=== PATIENT | female | born 1965 | race Hispanic/Latino ===

== ENCOUNTER 2020-01-28 10:25 | Emergency (ER) | payer BC, OTHER ==
[~2020-01-28] VITALS: Ht 149.9 cm; Wt 61.2 kg
[2020-01-28] MEDS ORDERED: METHYLPREDNISOLONE SOD SUCC 125 MG/2ML VIAL IM ONE (11:15)
[2020-01-28] MEDS ORDERED: DIAZEPAM 2 MG TAB PO ONE (11:15)
[2020-01-28] MEDS ORDERED: KETOROLAC TROMETHAMINE 60 MG/2 ML VIAL IM ONE (11:15)
--- OUTSIDE RECORDS SUMMARY | 2020-01-28 11:16 | XMS REPORT | Clinical Summary ---
Author Author [facility] ict Organization [facility] ict Address Unknown Phone Unavailable Care Team Providers Care Bi Lead Name Role Phone Mckenna Anderson MD PCP Abbie Nicolas MD PCP [phone] Allergies No Known Allergies Medications End Date Status Medication Sig Dispensed Refills Start Date Active polyethylene glycol Add lukewarm 4000 mL 0 02/06 (GOLYTELY) 236-22.74-6.74 drinking 8 -5.86 gram oral water to the solutionIndications: fill mirella (4 Positive occult stool liters) and blood test shake. Drink as directed by your doctor.. Active venlafaxine (EFFEXOR XR) Take 1 90 capsule 1 0 37.5 mg extended release capsule by 9 capsuleIndications: mouth daily. Symptomatic menopausal or female climacteric states Active Problems Problem Noted Date Perimenopausal 05/18/2018 Fatty liver 05/10/2018 Macrocytosis without anemia 03/23/2018 Bilateral primary osteoarthritis of knee 02/07/2018 Positive occult stool blood test 02/04/2018 Chest pain 09/23/2016 Immunizations Name Administration Dates Next Due Influenza Vaccine 06/12/2013 Influenza, 03/22/2018 Vaccine<FLUCELVAX>(Multi- Dose) Tdap Tetanus, diphtheria, 06/12/2013 acellular pertussis Vaccine Family History Medical History Relation Name Comments Heart Brother Asthma Brother Diabetes Father Heart Father Hypertension Father Diabetes Mother Asthma Sister Diabetes Sister Hypertension Sister Hypertension Sister Hypertension Sister Relation Name Status Comments Brother Brother Alive Brother Alive Brother Alive Brother Alive Brother Alive Daughter Alive Daughter Alive Father Alive Maternal Grandfather Maternal Grandmother Mother Paternal Grandfather Paternal Grandmother Sister Alive Sister Alive Sister Alive Sister Alive Sister Alive Sister Alive Son Alive Social History Date Tobacco Use Types Packs/Day Years Used Never Smoker Smokeless Tobacco: Never Used Tobacco Cessation: Counseling Given: No Drinks/Week oz/Week Comments Alcohol Use occasionally drinker Yes Food Insecurity Answer Date Recorded Within the past 12 months, you worried that your Never arturo e 01/26/2018 food would run out before you got money to buy more. Within the past 12 months, the food you bought Never true 01/26/2018 just didn't last and you didn't have mo mini to get more. Sex Assigned at Date Recorded Not on file Industry Job Start Date Occupation Not on file Not on file Not on file Travel End Travel History Travel Start No recent travel history available. Last Filed Vital Signs Not on file Plan of Treatment Health Maintenance Due Date Last Done Comments Colorectal Cancer Scrn 02/03/2019 02/03/2018 Annual (FIT/FOBT) Age 50 to 75 Breast Cancer Scrn 02/24/2019 02/24/2018, (Yearly) 06/12/2013 IMM Influenza Seasonal 02/21/2020 03/22/2018, Feb to July (>/= 19 yrs) 06/12/2013 Cervical Cancer Scrn (3 03/21/2021 03/21/2018, Yrs) 07/25/2013 (Previously completed - External) Results Not on fileafter 01/27/2019
--- OUTSIDE RECORDS SUMMARY | 2020-01-28 11:16 | XMS REPORT | Continuity of Care Document ---
Author Author [facility] t Organization [facility] Address [address] [place] [address] Phone Unavailable Care Team Providers Care Editor At Large Name Role Phone Monica BULL, Mckenna PCP Payers Payer Name Policy Type Policy Number Effective Date Expiration Date S ource Problems Condition Name Condition Details Condition Category Status Onset Date Resolution Date Last Treatment Date Treating Clinician Comments Source Perimenopausal Perimenopausal Disease Active 2018-05-18 00:00:00 [facility] Fatty liver Fatty liver Disease Active 2018-05-10 00:00:00 [facility] Macrocytosis without anemia Macrocytosis without anemia Disease Active 2018-03-23 00:00:00 [facility]alth Bilateral primary osteoarthritis of knee Bilateral gloria tavia osteoarthritis of knee Disease Active 2018-02-07 00:00:00 [employer] Positive occult stool blood test Positive occult stool blood maida t Disease Active 2018-02-04 00:00:00 [place] [facility] Chest pain Chest pain Disease Active 2016-09-23 00:00:00 [facility] Allergies, Adverse Reactions, Alerts Allergy Name Allergy Type Status Severity Reaction(s) Onset Date Inacti ve Date Treating Clinician Comments Source No Known Allergies DA Active U 2017-12-15 00:00:00 [facility] Family History Family Member Diagnosis Comments Start Date Stop Date Source Natural brother Heart Ammon He alth Natural brother Asthma Ammon He alth Natural father Diabetes Am[facility] Hea lth Natural father Heart Am[facility] Hea lth Natural father Hypertension Ammon Peguero ealtbozena Natural mother Diabetes [facility] Hea lth Natural sister Asthma Ammon Cabreraa lt Natural sister Diabetes Ammon Cabreraa lt Natural sister Hypertension Ammon Peguero ealth Social History Social Habit Start Date Stop Date Quantity Comments Source Sex Assigned At [facility] Alcohol intake 2018-10-25 00:00:00 2018-10-25 00:00:00 Current drinker of alcohol (finding) [facility] History SDOH Food Worry 2018-01-26 00:00:00 2018-01-26 00:00:00 1 [facility] SDME Food Scarcity 2018-01-26 00:00:00 2018-01-26 00:00:00 1 [facility] Alcohol Comment 2013-06-12 00:00:00 2013-06-12 00:00:00 occasionally drinker [facility] Smoking Status Start Date Stop Date Source Never smoker [facility] Medications Ordered Medication Name Filled Medication Name Start Date Stop Da te Current Medication? Ordering Clinician Indication Dosage Frequency Signature (SIG) Comments Components Source venlafaxine (EFFEXOR XR) 37.5 mg extended release capsule 2018-10-19 00:00:00 Yes Symptomatic menopausal or female climacteric st ates 37.5mg QD Take 1 capsule by mouth daily. [facility] polyethylene glycol (GOLYTELY) 236-22.74-6.74 -5.86 gram ora l solution 2018-02-06 00:00:00 Yes Positive occult stool blood te st Add lukewarm drinking water to the fill mirella (4 liters) and shake. Drink as directed by your doctor.. [facility] Immunizations Ordered Immunization Name Filled Immunization Name Date Status Comments Source Influenza, Vaccine<FLUCELVAX>(Multi-Dose) 2018-03-22 00:00 :00 Completed [facility] Influenza Vaccine 2013-06-12 00:00:00 Completed [facility] Tdap Tetanus, diphtheria, acellular pertussis Vaccine 2013-06-12 00:00:00 Completed [facility] Procedures This patient has no known procedures. Plan of Care Planned Activity Planned Date Details Comments Source Future Scheduled Test 2021-03-21 00:00:00 Screening for autumn gnant neoplasm of cervix (procedure) [code = 794087455] [facility] Scheduled Test 2020-02-21 00:00:00 IMM Influenza Seas onal Feb to July (>/= 19 yrs) [code = IMM Influenza Seasonal Feb to July (>/= 19 yrs)] [facility] Scheduled Test 2019-02-24 00:00:00 Breast Cancer Scrn (Yearly) [code = Breast Cancer Scrn (Yearly)] [facility] Scheduled Test 2019-02-03 00:00:00 Screening for autumn gnant neoplasm of colon (procedure) [code = 103265251] [facility] Encounters Start Date/Time End Date/Time Encounter Type Admission Type [facility] Care Department Encounter ID Source 2018-11-24 00:00:00 2018-11-24 00:00:00 Outpatient [facility] [id number] [facility] 2018-11-01 00:00:00 2018-11-01 00:00:00 Outpatient [facility] [id number] [facility] 2018-10-23 10:07:38 2018-10-23 10:07:38 Outpatient [facility] [id number] [facility] 2018-10-23 00:00:00 2018-10-23 00:00:00 Outpatient [facility] [id number] [facility] 2018-10-19 12:56:33 2018-10-19 12:56:33 Outpatient [facility] [id number] [facility] 2018-06-13 09:32:23 2018-06-13 09:32:23 Outpatient [facility] [id number] [facility] 2018-05-17 15:54:24 2018-05-17 15:54:24 Outpatient [facility] [id number] [facility] 2018-05-10 09:21:07 2018-05-10 09:21:07 Outpatient [facility] [id number] [facility] 2018-05-02 11:52:08 2018-05-02 11:52:08 Outpatient [facility] [id number] [facility] 2018-03-22 11:36:53 2018-03-22 11:36:53 Outpatient [facility] [id number] [facility] 2018-03-22 10:53:44 2018-03-22 10:53:44 Outpatient [facility] [id number] [facility] 2018-03-21 13:55:56 2018-03-21 13:55:56 Outpatient [facility] [id number] [facility] 2018-03-02 00:00:00 2018-03-02 00:00:00 Outpatient [facility] [id number] [facility] 2018-02-28 13:23:13 2018-02-28 13:23:13 Outpatient [facility] [id number] [facility] 2018-02-24 08:40:34 2018-02-24 08:40:34 Outpatient [facility] [id number] [facility] 2018-02-17 16:02:46 2018-02-17 16:02:46 Outpatient [facility] [id number] [facility] 2018-02-06 15:23:30 2018-02-06 15:23:30 Outpatient [facility] [id number] [facility] 2018-02-03 08:41:19 2018-02-03 08:41:19 Outpatient [facility] [id number] [facility] 2018-02-03 08:30:00 2018-02-03 08:30:00 Outpatient [facility] [id number] [facility] 2018-01-26 13:22:56 2018-01-26 13:22:56 Outpatient [facility] [id number] [facility] Results This patient has no known results.
[2020-01-28 11:17] LABS: CLARITY,URINE CLOUDY (CLEAR); COLOR,URINE YELLOW (YELLOW); LEUKOCYTE ESTERASE ,URINE TRACE (NEGATIVE); NITRITE,URINE NEGATIVE (NEGATIVE)
[2020-01-28 11:18] LABS: BILIRUBIN,URINE SMALL (NEGATIVE); KETONES,URINE TRACE (NEGATIVE); PROTEIN,URINE DIPSTICK TRACE (NEGATIVE); URINE UROBILINOGEN 0.2 mg/dL (0.2 - 1)
[2020-01-28 11:24] LABS: BACTERIA,URINE RARE /HPF; EPITHELIAL CELLS,URINE FEW /LPF
[2020-01-28] MEDS ORDERED: DIAZEPAM 5 MG TAB PO ONE (11:30)
--- NOTE | 2020-01-28 11:43 | Emergency Department Note ---
History of Present Illnes History of Present Illness Chief Complaint: Back Pain History of Present Illness This is a 54 year old female arrived to the ED with complaints of b/l back pain. Chief Complaint Comment Patient in from home with complaints of back pain since last night. Patient denies known cause of the pain such as heavy lifting or trauma. Pain is reproducible with palpation along her lower back. Patient denies medical history. Historian: Patient Arrival Mode: Car Dancing Instructor Required: No Onset (how long ago): hour(s) Severity: mild Onset quality: gradual Duration (how long): day(s) Timing of current episode: constant Progression: worsening Chronicity: new Context: Reports recent illness Relieving factors: none Exacerbating factors: none Past Medical/Family History Physician Review I have reviewed the patient's past medical and family history. Any updates have been documented here. Past Medical History Recent Fever: No Clinical Suspicion of Infectio: No New/Unexplained Change in Ment: No Other Medical History: Covid 19 Past Surgical History: None Social History Smoking Cessation: Never Smoker Alcohol Use: Occasional Any Illegal Drug Use: No Physically hurt or threatened: No Other Any Pre-Existing Lines (PICC,: No Review of Systems Review of Systems Constitutional: Reports no symptoms EENTM: Reports no symptoms Cardiovascular: Reports no symptoms Respiratory: Reports no symptoms Gastrointestinal: Reports no symptoms Genitourinary: Reports no symptoms Musculoskeletal: Reports as per HPI, Reports back pain Integumentary: Reports no symptoms Neurological: Reports no symptoms Psychological: Reports no symptoms Endocrine: Reports no symptoms Hematological/Lymphatic: Reports no symptoms Physical Exam Related Data Allergies: Coded Allergies: No Known Allergies (Unverified , 01/28/20) Triage Vital Signs Vital Signs Date Time Temp Pulse Resp B/P (MAP) Pulse Ox O2 Delivery O2 Flow Rate FiO2 01/28/20 10:30 98.2 81 17 178/96 97 Room Air Vital signs reviewed: Yes Physical Exam CONSTITUTIONAL Constitutional: Present well-developed, Present well-nourished HENT HENT: Present normocephalic, Present atraumatic, Present oropharynx clear/moist, Present nose normal HENT L/R: Present left ext ear normal, Present right ext ear normal EYES Eyes: Reports PERRL, Reports conjunctivae normal NECK Neck: Present ROM normal PULMONARY Pulmonary: Present effort normal, Present breath sounds normal CARDIOVASCULAR Cardiovascular: Present regular rhythm, Present heart sounds normal, Present capillary refill normal, Present normal rate GASTROINTESTINAL Abdominal: Present soft, Present nontender, Present bowel sounds normal GENITOURINARY Genitourinary: Present exam deferred SKIN Skin: Present warm, Present dry MUSCULOSKELETAL Musculoskeletal: Present ROM normal NEUROLOGICAL Neurological: Present alert, Present oriented x 3, Present no gross motor or sensory deficits PSYCHOLOGICAL Psychological: Present mood/affect normal, Present judgement normal Results Laboratory Laboratory Laboratory Tests Test 01/28/20 10:36 Urine Color Yellow (YELLOW) Urine Clarity Cloudy (CLEAR) Urine pH 6 (5 - 7) Urine Specific [place] 1.025 (1.010-1.025) Urine Protein Trace (NEGATIVE) Urine Glucose (UA) Negative (NEGATIVE) Urine Ketones Trace (NEGATIVE) Urine Blood Trace (NEGATIVE) Urine Nitrite Negative (NEGATIVE) Urine Bilirubin Small (NEGATIVE) Urine Urobilinogen 0.2 mg/dL (0.2 - 1) Urine Leukocyte Esterase Trace (NEGATIVE) Urine RBC 6-10 /HPF (0-5) Urine WBC 6-10 /HPF (0-5) Urine Epithelial Cells Few /LPF (NONE) Urine Bacteria Rare /HPF (NONE) Imaging Imaging results reviewed: Yes Impressions IMPRESSION: Degenerative changes at L4-L5 and L5-S1 with severe right neural foraminal narrowing at L5-S1 and mild canal stenosis at L4-L5. Assessment & Plan Medical Decision Making MDM 54-year-old well-appearing female arrives the ED with complaints of back pain. No neurological deficits noted on exam. CT findings consistent with stenosis. No concerns of cord compression, cauda equina or epidural abscess at time of discharge. Outpatient orthopedic referral given and recommended outpatient MRI. We for Solu-Medrol, ketorolac and [place]. Gingiva steady gait at time of discharge. All clinical impressions and diagnoses provided are preliminary ED determinations subject to the inherent limitations of an emergent non-scheduled evaluation and possible lack of comprehensive previous records. All patient care including history taking, review of systems, physical exam, nursing notes review, medical decision making, clinical course management in the emergency department, clinical impression, disposition and plan formulation was performed on the date of service. This note was created using a voice-recognition transcribing system. Incorrect words or phrases may have been missed during proofreading. Please interpret accordingly. Assessment & Plan Final Impression: (1) Lumbar stenosis Depart Disposition: HOME, SELF-CARE Last Vital Signs Date Time Temp Pulse Resp B/P (MAP) Pulse Ox O2 Delivery O2 Flow Rate FiO2 01/28/20 10:30 98.2 81 17 178/96 97 Room Air Home Meds Active Scripts Diazepam (VALIUM) 2 Mg Tablet, 2 MG PO Q6H PRN for MUSCLE SPASMS, #20 0 Refills Prov:SPENCER COBIAN, 01/28/20 Tramadol Hcl (ULTRAM) 50 Mg Tablet, 50 MG PO Q6HR PRN for Mild Pain (1-3) or Fever>100.8, #14 TAB Prov:SPENCER COBIAN DO 01/28/20 Medications in the ED Diazepam 5 mg ONCE ONCE PO ; Start 01/28/20 at 11:15; Stop 01/28/20 at 11:22; Status DC Ketorolac Tromethamine 60 mg ONCE ONCE IM ; Start 01/28/20 at 11:15; Stop 01/28/20 at 11:21; Status DC Methylprednisolone Sodium Succinate 125 mg ONCE ONCE IM ; Start 01/28/20 at 11:15; Stop 01/28/20 at 11:16; Status DC Diazepam 5 mg NOW ONCE PO ; Start 01/28/20 at 11:30; Stop 01/28/20 at 11:31 SPENCER COBIAN DO Jan 28, 2020 11:44
--- NOTE | 2020-01-28 12:31 | Diagnostic Imaging Report ---
Examination: CT Thoracic Spine without Contrast History: Back pain Comparison studies: None Technique: Axial images were reformatted obtained through the thoracic spine. Coronal and sagittal reconstructions obtained from the axial data. Dose modulation, iterative reconstruction, and/or weight based adjustment of the mA/kV was utilized to reduce the radiation dose to as low as reasonably achievable. Intravenous contrast: None Findings: Alignment: Normal kyphosis. No scoliosis. Soft tissues: No abnormalities. Paraspinal muscles: Unremarkable. Vertebrae: No fractures, infection or neoplasm. Degenerative changes: None. IMPRESSION: No acute thoracic spine abnormality. Signed by: Dr. Jodee Ngo M.D. on 01/28/2020 12:28 PM
--- NOTE | 2020-01-28 12:38 | Diagnostic Imaging Report ---
Examination: CT LUMBAR SPINE WO CONTRAST History: Low back pain Comparison studies: None Technique: Axial images were obtained through the lumbar spine from T12-S2. Coronal and sagittal reconstructions obtained from the axial data. Dose modulation, iterative reconstruction, and/or weight based adjustment of the mA/kV was utilized to reduce the radiation dose to as low as reasonably achievable. Intravenous contrast: None Findings: The usual 5 non-rib bearing lumbar vertebral bodies are present. Alignment: Normal lordosis. No scoliosis. Soft tissues: No abnormalities. Paraspinal muscles: No abnormalities. Sacroiliac joints: Mild degenerative changes. Vertebrae: No fractures, infection or neoplasm. Degenerative changes: L1-L2 through L3-L4: No abnormalities. L4-L5: Mild diffuse disc bulge and ligamentum flavum thickening results in mild bilateral foraminal narrowing and mild canal stenosis. L5-S1: Asymmetric to the right disc bulge and bilateral facet arthropathy results in severe right and mild left neural foraminal narrowing. No canal stenosis IMPRESSION: Degenerative changes at L4-L5 and L5-S1 with severe right neural foraminal narrowing at L5-S1 and mild canal stenosis at L4-L5. Signed by: Dr. Jodee Ngo M.D. on 01/28/2020 12:35 PM
[2020-01-28] MEDS ORDERED: VALIUM2 MG PO (12:49)
[2020-01-28] MEDS ORDERED: ULTRAM50 MG PO (12:49)
[2020-01-28 13:28] VITALS: BP 116/74
== END 2020-01-28 13:29 | disposition home or self-care (01) ==
LOC: ER 10:50
DX: M48.061 Spinal stenosis, lumbar region without neurogenic claudication (principal)
CPT/HCPCS: 72128; 72131; 81001; 99283; J1885; J2930

== ENCOUNTER → 2025-02-19 | Day surgery (SDC) | payer OTHER ==
[~2025-02-19] MED LIST: DEXAMETHASONE SOD PHOS INJ 4 MG/ML SDV ONE; DIPHENHYDRAMINE HCL INJ 50 MG/ML VIAL ONE; FENOFIBRATE145 MG PO; HYOSCYAMINE SULFATE 0.5 MG/ML INJ ONE; LACTATED RINGER'S 1,000 ML ONE; LIDOCAINE HCL 2% LOCAL INJ 5 ML SDV VIAL INJ ONE; METOCLOPRAMIDE HCL 10 MG/2ML VIAL ONE; MIDAZOLAM HCL 2 MG/2 ML VIAL ONE; ONDANSETRON HCL INJ 2MG/ML 2ML 2 MG/ML VIAL ONE; PANTOPRAZOLE SO40 MG PO; PROPOFOL IV EMULSION 10 MG/ML 20 ML VIAL ONE; PROPOFOL IV EMULSION 50 ML IV ONE; PROPRANOLOL HCL10 MG PO; SERTRALINE HCL50 MG PO; ULTRAM50 MG PO; VALIUM2 MG PO
[2025-02-19 14:52] VITALS: TEMP 97.4
[2025-02-19 15:15] VITALS: BP 134/87; PULSE 65; RESP 18; O2SAT 100
== END | disposition home or self-care (01) ==
LOC: OR 11:46
PROVIDERS: ATTEND Internal Medicine Gastroenterology
DX: K29.70 Gastritis, unspecified, without bleeding (principal); K31.7 Polyp of stomach and duodenum; K29.80 Duodenitis without bleeding; K20.90 Esophagitis, unspecified without bleeding; K31.89 Other diseases of stomach and duodenum; K21.9 Gastro-esophageal reflux disease without esophagitis; K57.30 Diverticulosis of large intestine without perforation or abscess without bleeding; K64.8 Other hemorrhoids; I10 Essential (primary) hypertension; Z71.89 Other specified counseling; E78.5 Hyperlipidemia, unspecified; R63.4 Abnormal weight loss; M54.9 Dorsalgia, unspecified; F41.9 Anxiety disorder, unspecified; F32.A Depression, unspecified; Z01.810 Encounter for preprocedural cardiovascular examination; Z79.899 Other long term (current) drug therapy; Z68.30 Body mass index [BMI] 30.0-30.9, adult; Z71.3 Dietary counseling and surveillance
CPT/HCPCS: 43239; 43251; 45378; 93005; J1100; J1200; J1980; J2003; J2250; J2405; J2470; J2704 ×2; J2765; J7121